=== PATIENT | male | born 2000 | race Caucasian/White ===

== ENCOUNTER 2024-12-18 17:19 | Emergency (ER) | payer OTHER, SELFPAY ==
--- NOTE | 2024-12-18 17:33 | ED.GENADULT ---
HPI - General Adult General Chief complaint: Unspecified Stated complaint: asthma medication refill Time Seen by Provider: 12/18/24 17:24 Source: patient Mode of arrival: ambulatory Limitations: no limitations History of Present Illness HPI narrative: patient is a 24-year-old male presenting for as a medication refill. Patient is requesting refill of his Wixela and albuterol inhaler. He denies any complaints or concerns. Related Data Home Medications ?Medication ?Instructions ?Recorded ?Confirmed ?Last Taken ?Type albuterol sulfate 90 mcg/actuation inhalation 12/18/24 Unknown History aerosol inhaler Allergies Allergy/AdvReac Type Severity Reaction Status Date / Time No Known Allergies Allergy Verified 12/18/24 17:38 Review of Systems Review of Systems: CONSTITUTIONAL: Denies body aches, fever, chills, or sweats. EYES: Denies visual changes, redness, or discharge. ENT: Denies rhinorrhea, congestion, sore throat, or otalgia. CARDIOVASCULAR: Denies chest pain, palpitations, or edema. RESPIRATORY: Denies cough or dyspnea. GASTROINTESTINAL: Denies abdominal pain, nausea, vomiting, or diarrhea. GENITOURINARY: Denies dysuria or hematuria. SKIN: Denies rash, itching, or wounds. MUSCULOSKELETAL: Denies back pain, joint pain, or myalgia. NEUROLOGIC: Denies headache, numbness, tingling, or weakness. PSYCH: Denies depression or anxiety. All systems reviewed & are unremarkable except as noted in HPI and below Exam Narrative: GENERAL: Well-appearing, well-nourished, and in no acute distress. HEAD: Normocephalic, atraumatic. EYES: EOMI. No redness or drainage. Conjunctivae normal. ENT: Mucous membranes pink and moist. NECK: Normal AROM. Supple. CHEST: No respiratory distress. Clear to auscultation. HEART: Regular rate and rhythm. No murmur appreciated. Normal peripheral pulses. EXTREMITIES: Normal range of motion. SKIN: Warm, dry, no rash. Capillary refill normal. Normal skin turgor. NEURO: No focal deficits. Alert and oriented x3. Gait steady. PSYCH: Normal affect. No signs of depression or anxiety. Course Course Emergency Course: Referral given for primary care, strongly encouraged patient to follow-up with them DAVID. Aware that should [facility] require prior auth, we do not do those from the [facility] setting. Discussed elevated blood pressure readings with patient and advised daily BP monitoring and f/u with PCP if persisting. Level of Care: [facility] Visit Vital Signs Vital signs: Vital Signs Temperature 98.2 F 12/18/24 17:39 Pulse Rate 71 12/18/24 17:39 Respiratory Rate 16 12/18/24 17:39 Blood Pressure 137/88 12/18/24 17:39 Pulse Oximetry 97 12/18/24 17:39 Oxygen Delivery Room Air 12/18/24 17:39 Temperature 98.2 F 12/18/24 17:39 Pulse Rate 71 12/18/24 17:39 Respiratory Rate 16 12/18/24 17:39 Blood Pressure 137/88 12/18/24 17:39 Pulse Oximetry 97 12/18/24 17:39 Oxygen Delivery Room Air 12/18/24 17:39 Medical Decision Making Vital Signs Vital Signs: Vital Signs Temperature 98.2 F 12/18/24 17:39 Pulse Rate 71 12/18/24 17:39 Respiratory Rate 16 12/18/24 17:39 Blood Pressure 137/88 12/18/24 17:39 Pulse Oximetry 97 12/18/24 17:39 Oxygen Delivery Room Air 12/18/24 17:39 Temperature 98.2 F 12/18/24 17:39 Pulse Rate 71 12/18/24 17:39 Respiratory Rate 16 12/18/24 17:39 Blood Pressure 137/88 12/18/24 17:39 Pulse Oximetry 97 12/18/24 17:39 Oxygen Delivery Room Air 12/18/24 17:39 Discharge Plan Discharge Clinical Impression: Encounter for medication refill, History of asthma Patient Disposition: Home Condition: Stable Additional Instructions: Go straight to ER should your symptoms become worse or should any new symptoms develop Patient Language: Bermudian Prescriptions: New albuterol sulfate 90 mcg/actuation aerosol powdr breath activated 2 inh inhalation Q4-6H PRN (Reason: shortness of breath or wheezing) Qty: 1 0RF fluticasone propion-salmeterol [Wixela Inhub] 100-50 mcg/dose blister with device 1 inh inhalation Q12H Qty: 60 0RF No Action albuterol sulfate 90 mcg/actuation HFA aerosol inhaler INHALATION Follow-up/Referrals: Melquiades Crews MD [Physician, Family Practice] - 12/19/24 UNKNOWN,DOCTOR [Primary Care Provider] Time of Disposition: 17:43
[2024-12-18 17:39] VITALS: BP 137/88; PULSE 71; RESP 16; TEMP 36.8; O2SAT 97
== END 2024-12-18 17:50 | disposition home or self-care (01) ==
PROVIDERS: Emergency Provider Registered Nurse
DX: J45.909 Unspecified asthma, uncomplicated (principal); Z76.0 Encounter for issue of repeat prescription
CPT/HCPCS: 99202; G0463